=== PATIENT | male | born 1960 | race Caucasian/White ===

== ENCOUNTER 2021-08-03 07:05 | Emergency (ER) | payer OTHER | END 2021-08-03 16:00 | disposition other institution (70) | LOC: FER 07:05 | DX: S68.522A Partial traumatic transphalangeal amputation of left thumb, initial encounter (principal); S67.193A Crushing injury of left middle finger, initial encounter; F17.200 Nicotine dependence, unspecified, uncomplicated; W23.0XXA Caught, crushed, jammed, or pinched between moving objects, initial encounter; Y92.89 Other specified places as the place of occurrence of the external cause; Y99.0 Civilian activity done for income or pay | CPT/HCPCS: 73130; J2001 ==